=== PATIENT | male | born 1990 | race Caucasian/White ===

== ENCOUNTER 2017-01-02 20:18 | Emergency (ER) | payer OTHER ==
[2017-01-02 20:30] VITALS: RESP 16; TEMP 97.7
--- NOTE | 2017-01-02 20:31 | CPEKG ---
Heart Rate: 66 RR Interval: 909 P-R Interval: 144 QRSD Interval: 106 QT Interval: 396 QTC Interval: 415 P [place]: 11 QRS [place]: 23 T Wave [place]: 137 EKG Severity - ABNORMAL ECG - EKG Impression: SINUS RHYTHM EKG Impression: NONSPECIFIC T ABNORMALITIES, ANT-LAT LEADS Electronically Signed By: Hieu Frank 04-Jan-2017 08:39:41
--- NOTE | 2017-01-02 20:31 | UCPHY ---
H & P Patient Type: New Chief Complaint Nursing Narrative: C/o L sided chest pain x 3 days that worsens at night. Denies SOB. Time Seen by Provider: 01/02/17 20:24 HPI/ROS: 26-year-old male presents complaining of left-sided upper abdominal pain and chest pain for the last 3 days. He states it only happens in the afternoon however he is having some pain at present. He denies nausea vomiting diarrhea. He denies any relation between food and when the pain occurs Denies shortness of breath. He states he had a pulmonary embolism last March and is concerned about this pain also being a pulmonary embolism although he does admit is markedly less painful than last March. Review of systems General no fever no chills no weakness HEENT no eye pain no eye discharge. No eye redness, no sore throat Respiratory no cough, no shortness of breath Cardiac positive chest pain, no peripheral edema GI positive abdominal pain, no diarrhea, no constipation, no nausea, no vomiting no flank pain, no hematuria, no dysuria Musculoskeletal no myalgias, no joint pain Heme no easy bruising, no easy bleeding Endo no polyuria, no polydipsia Skin no rashes, no pruritus Neuro no syncope, no dizziness, no headaches Psych is no suicidal ideation, no homicidal ideation Source: Patient Exam Limitations: No limitations - Personal History Current Tetanus Diphtheria and Acellular Pertussis (TDAP): Yes Tetanus Vaccine Date: within 10 years - Medical/Surgical History Hx Asthma: No Hx Chronic Respiratory Disease: No Hx Diabetes: No Hx Cardiac Disease: No Hx Renal Disease: No Hx Cirrhosis: No Hx Alcoholism: No Hx HIV/AIDS: No Hx Splenectomy or Spleen Trauma: No Other PMH: pmh: PE. PSH: DENIES - Family History Significant Family History: No pertinent family hx - Social History Smoking Status: Former smoker Alcohol Use: Occasionally Drug Use: None - Physical Exam Exam: 26-year-old male in no acute distress nontoxic appearance afebrile HEENT atraumatic normocephalic, extraocular muscles intact, anicteric Oropharynx negative for erythema negative exudate, tolerating her own secretions Neck supple no meningismus Lungs clear to auscultation bilaterally Heart regular rate and rhythm without murmur rub or gallop Chest nontender to palpation Abdomen nondistended normoactive bowel sounds soft, mild left upper quadrant tenderness to palpation, no guarding no rebound Back no CVA tenderness, no step-offs, no spinal tenderness Extremities no cyanosis clubbing or edema Neuro alert and oriented, no focal deficits Constitutional: Initial Vital Signs Temperature (C) 36.5 C 01/02/17 20:29 Heart Rate 85 01/02/17 20:29 Respiratory Rate 16 01/02/17 20:29 Blood Pressure 124/66 H 01/02/17 20:29 O2 Sat (%) 96 01/02/17 20:29 O2 Delivery Mode Room Air Allergies/Adverse Reactions: No Known Allergies Allergy (Verified 01/02/17 20:30) Home Medications: Medication Instructions Recorded NK [No Known Home Meds] 01/02/17 Medical Decision Making ED Course/Re-evaluation: Patient seen and evaluated for left upper quadrant/left chest pain. EKG done normal sinus rhythm no ischemic changes no tachycardia IV established Lab sent CBC, CMP, lipase, D-dimer all negative Chest x-ray negative Chest CT-chronic right small thrombus/partial filling defect in the same location as prior pulmonary embolism 1 year ago, this 1 appears smaller and appears to be chronic Differential diagnosis Left upper quadrant abdominal pain-gastritis, peptic ulcer disease, pancreatitis , cholecystitis Left chest pain-cardiac ischemia, myocarditis, pulmonary embolism Laboratories do not support a diagnosis of pancreatitis cholecystitis cardiac ischemia or myocarditis Chest x-ray as noted above was negative Impression/plan 1. Left upper quadrant pain Likely gastritis cannot rule out early peptic ulcer disease Pain has only been approximately 3 days duration and only in the afternoons for now advised patient to try [id number] medicines such as Tums, Pepcid Also advised patient to follow up with a primary care physician 2. Chronic pulmonary thrombus right lung, very small Patient states he was only on an anticoagulant for approximately 4 months he is having no symptoms related to his right lung no shortness of breath no chest pain on the right side I suspect this finding of a partial thrombus chronic in nature that is very small is likely insignificant medically. The patient followed with a Dr. Ramirez a biological plant operator oncologist at [facility] in [place] for his pulmonary embolus I advised patient to see if he could arrange to have an appointment with Dr. Ramirez to discuss current chronic embolus and whether it would be worth going on anticoagulants began. - Data Points Laboratory Results: Laboratory Results 01/02/17 20:40 01/02/17 20:40 01/02/17 01/02/17 01/02/17 20:40 20:40 20:40 WBC 8.06 10^3/uL 10^3/uL (3.80-9.50) RBC 5.10 10^6/uL 10^6/uL (4.40-6.38) Hgb 15.6 g/dL g/dL (13.7-17.5) POC Hgb Hct 45.1 % % (40.0-51.0) POC Hct MCV 88.4 fL fL (81.5-99.8) MCH 30.6 pg pg (27.9-34.1) MCHC 34.6 g/dL g/dL (32.4-36.7) RDW 11.9 % % (11.5-15.2) Plt Count 289 10^3/uL 10^3/uL (150-400) MPV 10.1 fL fL (8.7-11.7) Neut % (Auto) 52.2 % % (39.3-74.2) Lymph % (Auto) 34.4 % % (15.0-45.0) [place] % (Auto) 7.2 % % (4.5-13.0) Eos % (Auto) 5.5 % % (0.6-7.6) Baso % (Auto) 0.6 % % (0.3-1.7) Nucleat RBC Rel Count 0.0 % % (0.0-0.2) Absolute Neuts (auto) 4.21 10^3/uL 10^3/uL (1.70-6.50) Absolute Lymphs (auto) 2.77 10^3/uL 10^3/uL (1.00-3.00) Absolute Monos (auto) 0.58 10^3/uL 10^3/uL (0.30-0.80) Absolute Eos (auto) 0.44 10^3/uL H 10^3/uL (0.03-0.40) Absolute Basos (auto) 0.05 10^3/uL 10^3/uL (0.02-0.10) Absolute Nucleated RBC 0.00 10^3/uL 10^3/uL (0-0.01) Immature Gran % 0.1 % % (0.0-1.1) Immature Gran # 0.01 10^3/uL 10^3/uL (0.00-0.10) PT 13.4 SEC SEC (12.0-15.0) INR 1.05 (0.83-1.16) APTT 29.9 SEC SEC (23.0-38.0) D-Dimer < 0.27 ug/mLFEU ug/mLFEU (0.00-0.50) POC Sodium Sodium 138 mEq/L mEq/L (134-144) POC Potassium Potassium 3.7 mEq/L mEq/L (3.5-5.2) POC Chloride Chloride 102 mEq/L mEq/L (97-110) Carbon Dioxide 24 mEq/l mEq/l (22-31) Anion Gap 12 mEq/L mEq/L (8-16) POC BUN BUN 17 mg/dL mg/dL (7-23) Creatinine 0.9 mg/dL mg/dL (0.7-1.3) POC Creatinine Estimated GFR > 60 Glucose 90 mg/dL mg/dL (70-100) POC Glucose Calcium 9.1 mg/dL mg/dL (8.5-10.4) Total Bilirubin 0.5 mg/dL mg/dL (0.1-1.4) AST 27 IU/L IU/L (17-59) ALT 37 IU/L IU/L (21-72) Alkaline Phosphatase 74 IU/L IU/L (38-126) Troponin I < 0.012 ng/mL ng/mL (0-0.034) Total Protein 7.3 g/dL g/dL (6.3-8.2) Albumin 4.0 g/dL g/dL (3.5-5.0) Lipase 01/02/17 01/02/17 20:35 20:34 WBC RBC Hgb POC Hgb 16.3 gm/dL gm/dL (14.5-17.3) Hct POC Hct 48 % % (42.8-50.6) MCV MCH MCHC RDW Plt Count MPV Neut % (Auto) Lymph % (Auto) [place] % (Auto) Eos % (Auto) Baso % (Auto) Nucleat RBC Rel Count Absolute Neuts (auto) Absolute Lymphs (auto) Absolute Monos (auto) Absolute Eos (auto) Absolute Basos (auto) Absolute Nucleated RBC Immature Gran % Immature Gran # PT INR APTT D-Dimer POC Sodium 142 mEq/L mEq/L (134-144) Sodium POC Potassium 3.5 mEq/L mEq/L (3.3-5.0) Potassium POC Chloride 105 mEq/L mEq/L (96-108) Chloride Carbon Dioxide Anion Gap POC BUN 19 mg/dL mg/dL (7-23) BUN Creatinine POC Creatinine 1.0 mg/dL mg/dL (0.8-1.5) Estimated GFR Glucose POC Glucose 95 mg/dL mg/dL (70-100) Calcium Total Bilirubin AST ALT Alkaline Phosphatase Troponin I Total Protein Albumin Lipase 72.0 IU/L IU/L (23-300) Point of Care Test Results: 01/02/17 20:34 POC Sodium 142 POC Potassium 3.5 POC Chloride 105 POC BUN 19 POC Creatinine 1.0 POC Glucose 95 Departure - Departure Disposition: Home, Routine, Self-Care Clinical Impression: Chronic pulmonary embolism, Left sided abdominal pain Condition: Good Instructions: Gastritis (ED) Additional Instructions: Follow up with Dr Ramirez, biological plant operator for recommendations of the small remaining partial thrombus on the right, appears chronic in nature. Referrals: NONE *PRIMARY CARE P,. [Primary Care Provider] - As per Instructions Tushar Mcclendon MD [Medical Doctor] - As per Instructions - PQRS PQRS Measurement: na
[2017-01-02 20:49] LABS: % IMMATURE GRANULYOCYTES 0.1 % (0.0-1.1); ABSOLUTE IMMATURE GRANULOCYTES 0.01 10^3/uL (0.00-0.10); ADD DIFF? NO; ADD MORPH? NO; ADD SCAN? NO; ATYPICAL LYMPHOCYTE FLAG 10 (0-99); FRAGMENT RBC FLAG 0 (0-99); HEMATOCRIT 45.1 % (40.0-51.0); HEMOGLOBIN 15.6 g/dL (13.7-17.5); LEFT SHIFT FLG 0 (0-99); LIPEMIA HEMOLYSIS FLAG 90 (0-99); MEAN CELL HEMOGLOBIN 30.6 pg (27.9-34.1); MEAN CELL HEMOGLOBIN CONCENTR. 34.6 g/dL (32.4-36.7); MEAN CELL VOLUME 88.4 fL (81.5-99.8); MEAN PLATELET VOLUME 10.1 fL (8.7-11.7); PLATELET CLUMPS FLAG 10 (0-99); PLATELET COUNT 289 10^3/uL (150-400); RED CELL DISTRIBUTION WIDTH 11.9 % (11.5-15.2)
[2017-01-02 21:01] LABS: INR 1.05 (0.83-1.16); PROTIME(PATIENT) 13.4 SEC (12.0-15.0)
[2017-01-02 21:02] LABS: APTT 29.9 SEC (23.0-38.0)
[2017-01-02 21:03] LABS: ALANINE AMINOTRANSFERASE 37 IU/L (21-72); ALKALINE PHOSPHATASE 74 IU/L (38-126); ANION GAP 12 mEq/L (8-16); ASPARTATE AMINOTRANSFERASE 27 IU/L (17-59); BILIRUBIN,TOTAL 0.5 mg/dL (0.1-1.4); CALCIUM 9.1 mg/dL (8.5-10.4); CARBON DIOXIDE 24 mEq/l (22-31); CHLORIDE 102 mEq/L (97-110); CREATININE 0.9 mg/dL (0.7-1.3); GLOMERULAR FILTRATION RATE > 60; GLUCOSE 90 mg/dL (70-100); POTASSIUM 3.7 mEq/L (3.5-5.2); SODIUM 138 mEq/L (134-144); TOTAL PROTEIN 7.3 g/dL (6.3-8.2)
[2017-01-02 21:15] LABS: TROPONIN I < 0.012 ng/mL (0-0.034)
[2017-01-02] MEDS ORDERED: IOPAMIDOL (ISOVUE 370) 100 ML BTL IV ONE (21:16)
[2017-01-02 22:53] VITALS: BP 126/72; PULSE 68; O2SAT 97
== END 2017-01-02 22:35 | disposition home or self-care (01) ==
LOC: CED 20:18
DX: K29.70 Gastritis, unspecified, without bleeding (principal); I27.82 Chronic pulmonary embolism
CPT/HCPCS: 71020-PO; 71275-PO; 80053-PO; 82947-QW; 83690-PO; 84484-PO; 85025-PO; 85378-PO; 85610-PO; 85730-PO; G0463-PO; Q9967

== ENCOUNTER 2017-04-25 18:30 | Inpatient (IN) | payer OTHER ==
--- NOTE | 2017-04-25 18:47 | CPEKG ---
Heart Rate: 83 RR Interval: 723 P-R Interval: 140 QRSD Interval: 104 QT Interval: 348 QTC Interval: 409 P [place]: 41 QRS [place]: 46 T Wave [place]: -9 EKG Severity - ABNORMAL ECG - EKG Impression: SINUS RHYTHM EKG Impression: NONSPECIFIC T ABNORMALITIES, DIFFUSE LEADS Electronically Signed By: Paramjit Buckley 25-Apr-2017 19:00:43
[2017-04-25] MEDS ORDERED: ASPIRIN 81 MG CHEWABLE TAB ONE (18:56)
--- NOTE | 2017-04-25 18:56 | EDPHY ---
H & P Time Seen by Provider: 04/25/17 18:56 HPI/ROS: Chief complaint. Chest pain HPI. 26-year-old male presents emergency department with chest pain for 7 hours that was present upon awakening about noon today. Cocaine use last night. He describes the discomfort as pressure and squeezing left anterior chest. No radiation. Symptoms are somewhat worse with taking a deep breath. No fever cough. No unusual leg pain or swelling. Previous PE. Continues to have chest discomfort. ROS Constitutional. no fever/chills, no weakness Eyes. no problems with vision ENT. no sore throat, no nasal drainage Cardiovascular. Chest pressure Respiratory. no shortness of breath, no cough Abdominal. no abdominal pain, no nausea/vomiting, no diarrhea . no problems urinating MS. no calf pain/swelling, no neck/back pain, no joint pain Skin. no rash Lymph. no swollen glands Neuro. no headache, no dizziness, no difficulty walking or with speech Past Medical/Surgical History: Previous pulmonary embolus after having an injury to his leg. No longer on anticoagulation Social History: Single, daily smoker, no alcohol. Cocaine use last night Smoking Status: Current every day smoker Physical Exam: General Appearance: Alert well-developed male mild distress vital signs show a heart rate 111 and blood pressure 139/83 Eyes: Pupils equal and round no pallor or injection. ENT, Mouth: Mucous membranes are moist. Respiratory: There are no retractions, lungs are clear to auscultation. Cardiovascular: Regular rate and rhythm. Gastrointestinal: Abdomen is soft and nontender, no masses, bowel sounds normal. Neurological: Awake and alert, sensory and motor exams grossly normal. Skin: Warm and dry, no rashes. Musculoskeletal: Neck is supple nontender. Extremities symmetrical, full range of motion. Psychiatric: Patient is oriented X 3, there is no agitation. Constitutional: Initial Vital Signs Temperature (C) 36.5 C 04/25/17 18:49 Heart Rate 111 H 04/25/17 18:49 Respiratory Rate 16 04/25/17 18:49 Blood Pressure 139/83 H 04/25/17 18:49 O2 Sat (%) 95 04/25/17 18:49 O2 Delivery Mode Room Air Allergies/Adverse Reactions: No Known Allergies Allergy (Verified 01/02/17 20:30) Home Medications: Medication Instructions Recorded NK [No Known Home Meds] 01/02/17 Medical Decision Making - Diagnostics EKG Interpretation: EKG interpreted by me shows normal sinus rhythm with normal interval and axis. QRS is normal there are anterior septal T-wave inversions leads V3 through V6. Rate is 83. Some similar T-wave changes present on EKG in December 2016 Imaging Results: Imaging Impressions Chest X-Ray 04/25/17 19:06 Impression: 1. No visible etiology for pain 2. Chronic or recurrent mild bronchitis. Procedures: IV normal saline, monitor. Aspirin in the emergency department. IV Ativan and sublingual nitroglycerin ED Course/Re-evaluation: Patient receive nitroglycerin x3 sublingually as well as aspirin and IV lorazepam. His pain has gone from a 7/10 to now about 2/10 but does continue. He otherwise remains stable. The patient and I discussed imaging and lab results as well as EKG findings. We discussed treatment plan including recommendation for admission and transport by ambulance to [facility]. The patient expresses understanding and agreement I consulted and discussed case with Dr. Verduzco, hospitalist, who agrees to the admission. Differential Diagnosis: I have considered acute coronary syndrome and vaso spasm. I have considered the pro clotting affect of the cocaine. While he has had and pulmonary embolus in the remote past this was due to leg trauma. His D-dimer is negative tonight. His chest x-ray is normal. I do not think this represents pulmonary embolus. I have also considered aortic dissection. - Data Points Laboratory Results: Laboratory Results 04/25/17 18:45 04/25/17 18:45 04/25/17 04/25/17 04/25/17 18:45 18:45 18:45 WBC 9.94 10^3/uL H 10^3/uL (3.80-9.50) RBC 5.17 10^6/uL 10^6/uL (4.40-6.38) Hgb 16.1 g/dL g/dL (13.7-17.5) Hct 46.5 % % (40.0-51.0) MCV 89.9 fL fL (81.5-99.8) MCH 31.1 pg pg (27.9-34.1) MCHC 34.6 g/dL g/dL (32.4-36.7) RDW 13.2 % % (11.5-15.2) Plt Count 255 10^3/uL 10^3/uL (150-400) MPV 9.4 fL fL (8.7-11.7) Neut % (Auto) 77.2 % H % (39.3-74.2) Lymph % (Auto) 15.8 % % (15.0-45.0) [place] % (Auto) 5.2 % % (4.5-13.0) Eos % (Auto) 0.8 % % (0.6-7.6) Baso % (Auto) 0.7 % % (0.3-1.7) Nucleat RBC Rel Count 0.0 % % (0.0-0.2) Absolute Neuts (auto) 7.67 10^3/uL H 10^3/uL (1.70-6.50) Absolute Lymphs (auto) 1.57 10^3/uL 10^3/uL (1.00-3.00) Absolute Monos (auto) 0.52 10^3/uL 10^3/uL (0.30-0.80) Absolute Eos (auto) 0.08 10^3/uL 10^3/uL (0.03-0.40) Absolute Basos (auto) 0.07 10^3/uL 10^3/uL (0.02-0.10) Absolute Nucleated RBC 0.00 10^3/uL 10^3/uL (0-0.01) Immature Gran % 0.3 % % (0.0-1.1) Immature Gran # 0.03 10^3/uL 10^3/uL (0.00-0.10) D-Dimer < 0.27 ug/mLFEU ug/mLFEU (0.00-0.50) Sodium 143 mEq/L mEq/L (134-144) Potassium 3.6 mEq/L mEq/L (3.5-5.2) Chloride 103 mEq/L mEq/L (97-110) Carbon Dioxide 22 mEq/l mEq/l (22-31) Anion Gap 18 mEq/L H mEq/L (8-16) BUN 8 mg/dL mg/dL (7-23) Creatinine 0.7 mg/dL mg/dL (0.7-1.3) Estimated GFR > 60 Glucose 115 mg/dL H mg/dL (70-100) Calcium 9.0 mg/dL mg/dL (8.5-10.4) Troponin I < 0.012 ng/mL ng/mL (0-0.034) Medications Given: Discontinued Medications Aspirin (Aspirin) 324 mg PO EDNOW ONE Stop: 04/25/17 18:59 Last Admin: 04/25/17 19:05 Dose: 324 mg Sodium Chloride (Ns) 1,000 mls @ 0 mls/hr IV ONCE ONE; Wide Open PRN Reason: Protocol Stop: 04/25/17 18:59 Last Admin: 04/25/17 19:00 Dose: 1,000 mls Lorazepam (Ativan Injection) 0.5 mg IVP EDNOW ONE Stop: 04/25/17 18:59 Last Admin: 04/25/17 19:05 Dose: 0.5 mg Nitroglycerin (Nitrostat) 0.4 mg SL EDNOW ONE Stop: 04/25/17 19:18 Last Admin: 04/25/17 19:16 Dose: 0.4 mg Nitroglycerin (Nitrostat) 0.4 mg SL EDNOW ONE Stop: 04/25/17 19:11 Last Admin: 04/25/17 19:11 Dose: 0.4 mg Nitroglycerin (Nitrostat) 0.4 mg SL EDNOW PRN PRN Reason: Chest Pain Stop: 04/27/17 19:22 Last Admin: 04/25/17 19:21 Dose: 0.4 mg Departure - Departure Disposition: [facility] Inpatient Acute Clinical Impression: Chest pain Qualifiers: Chest pain type: unspecified Qualified Code(s): R07.9 - Chest pain, unspecified Condition: Fair
[2017-04-25] MEDS ORDERED: NS 1,000 ML IV ONE (18:58)
[2017-04-25] MEDS ORDERED: ASPIRIN 81 MG CHEWABLE TAB PO ONE (18:58)
[2017-04-25] MEDS ORDERED: LORazepam 2 MG/ML INJ IVP ONE ×2 (18:58→20:50)
[2017-04-25 19:03] LABS: % IMMATURE GRANULYOCYTES 0.3 % (0.0-1.1); ABSOLUTE IMMATURE GRANULOCYTES 0.03 10^3/uL (0.00-0.10); ADD DIFF? NO; ADD MORPH? NO; ADD SCAN? NO; ATYPICAL LYMPHOCYTE FLAG 10 (0-99); FRAGMENT RBC FLAG 0 (0-99); HEMATOCRIT 46.5 % (40.0-51.0); HEMOGLOBIN 16.1 g/dL (13.7-17.5); LEFT SHIFT FLG 0 (0-99); LIPEMIA HEMOLYSIS FLAG 90 (0-99); MEAN CELL HEMOGLOBIN 31.1 pg (27.9-34.1); MEAN CELL HEMOGLOBIN CONCENTR. 34.6 g/dL (32.4-36.7); MEAN CELL VOLUME 89.9 fL (81.5-99.8); MEAN PLATELET VOLUME 9.4 fL (8.7-11.7); PLATELET CLUMPS FLAG 0 (0-99); PLATELET COUNT 255 10^3/uL (150-400); RED BLOOD CELL COUNT 5.17 10^6/uL (4.40-6.38); RED CELL DISTRIBUTION WIDTH 13.2 % (11.5-15.2)
[2017-04-25] MEDS ORDERED: NITROGLYCERIN 0.4 MG BTL SL PRN ×2 (19:06→19:21)
[2017-04-25 19:10] LABS: ANION GAP 18 mEq/L (8-16); CARBON DIOXIDE 22 mEq/l (22-31); CHLORIDE 103 mEq/L (97-110); CREATININE 0.7 mg/dL (0.7-1.3); GLOMERULAR FILTRATION RATE > 60; GLUCOSE 115 mg/dL (70-100); POTASSIUM 3.6 mEq/L (3.5-5.2); SODIUM 143 mEq/L (134-144)
[2017-04-25] MEDS ORDERED: NITROGLYCERIN 0.4 MG BTL SL ONE ×2 (19:10→19:17)
[2017-04-25 19:23] LABS: TROPONIN I < 0.012 ng/mL (0-0.034)
[2017-04-25] MEDS: NITROGLYCERIN 0.4 MG/HR PATCH TD SCH ×2 (20:50→21:54)
[2017-04-25] MEDS ORDERED: NITROGLYCERIN 2% 1 GM PACKET ONE (20:50)
[2017-04-25] MEDS ORDERED: NITROGLYCERIN 2% 1 GM PACKET TP ONE (20:50)
[2017-04-25] MEDS ORDERED: PATCH REMOVAL 1 EA PATCH TD SCH (21:00)
[2017-04-25] MEDS ORDERED: ONDANSETRON DISINTEGRATING 4 MG TAB PO PRN (23:30)
[2017-04-25] MEDS ORDERED: ONDANSETRON 4 MG/2 ML VIAL IVP PRN (23:30)
--- NOTE | 2017-04-25 23:42 | PDGENHP ---
History and Physical - Chief Complaint chest pain - History of Present Illness Patient is a 26 year old male with history of previous provoked PE who presents to the [facility] ED with complaint of chest pain. Patient states pain has been present since awakening at around noon today. He had been out the previous night and admits to cocaine use. He describes the pain as a tightness, substernal, nonradiating, not associated with shortness of breath, palpitations , dizziness. The pain had been constant, with intermittent worsening in intensity, sometimes up to 10/10, so he decided to go to the [facility] for further evaluation. He denies any recent fevers, chills, cough, congestion, nausea, vomiting. On arrival to the [facility], patient was afebrile and hemodynamically stable. Labs revealed normal cbc, bmp and negative initial troponin. EKG showed sinus rhythm with septal TWI. CXR was unremarkable. Chest pain was improved with nitro paste. He was then transferred to [facility] for further observation and admission. History Information - Allergies/Home Medication List Allergies/Adverse Reactions: No Known Allergies Allergy (Verified 01/02/17 20:30) Home Medications: NK [No Known Home Meds] 01/02/17 [Last Taken Unknown] I have personally reviewed and updated: family history, medical history, social history, surgical history - Past Medical History Additional medical history: provoked pulmonary embolism (2016) - Surgical History Reports: no pertinent surgical hx - Family History Positive for: non-pertinent - Social History Smoking Status: Current every day smoker (2-3 daily) Alcohol Use: Occasionally (1-2 times per week) Drug Use: Cocaine (reports first time use yesterday), Marijuana Review of Systems ROS: 10pt was reviewed & negative except for what was stated in HPI & below Physical Exam Temp Pulse Resp BP Pulse Ox 37.1 C 74 20 120/66 96 04/25/17 22:18 04/25/17 22:18 04/25/17 22:18 04/25/17 22:18 04/25/17 22:18 O2 (L/minute) 2 Constitutional: no apparent distress, appears nourished, not in pain Eyes: PERRL, anicteric sclera, EOMI Ears, Nose, Mouth, Throat: moist mucous membranes, hearing normal, ears appear normal, no oral mucosal ulcers Cardiovascular: regular rate and rhythym, no murmur, rub, or gallop, pulses symmetric bilaterally, No JVD, No edema Peripheral Pulses: 2+: dorsalis-pedis (R), dorsalis-pedis (L) Respiratory: no respiratory distress, no rales or rhonchi, clear to auscultation Gastrointestinal: normoactive bowel sounds, soft, non-tender abdomen, no palpable masses, No guarding, No rebound, No distension Genitourinary: no bladder fullness, no bladder tenderness Skin: warm, normal color, no rashes or abrasions, no fluctuance, no induration, No mottled Musculoskeletal: full muscle strength, no muscle tenderness, normal joint ROM, no joint effusions Neurologic: AAOx3, sensation intact bilaterally, CN II-XII Intact, No weakness, No numbness, No facial droop Psychiatric: interacting appropriately, not anxious, not encephalopathic, thought process linear Lab Data & Imaging Review 04/25/17 18:45 04/25/17 18:45 WBC 9.94 10^3/uL (3.80-9.50) H 04/25/17 18:45 RBC 5.17 10^6/uL (4.40-6.38) 04/25/17 18:45 Hgb 16.1 g/dL (13.7-17.5) 04/25/17 18:45 Hct 46.5 % (40.0-51.0) 18 18:45 MCV 89.9 fL (81.5-99.8) 04/25/17 18:45 MCH 31.1 pg (27.9-34.1) 04/25/17 18:45 MCHC 34.6 g/dL (32.4-36.7) 04/25/17 18:45 RDW 13.2 % (11.5-15.2) 04/25/17 18:45 Plt Count 255 10^3/uL (150-400) 04/25/17 18:45 MPV 9.4 fL (8.7-11.7) 04/25/17 18:45 Neut % (Auto) 77.2 % (39.3-74.2) H 04/25/17 18:45 Lymph % (Auto) 15.8 % (15.0-45.0) 04/25/17 18:45 [place] % (Auto) 5.2 % (4.5-13.0) 04/25/17 18:45 Eos % (Auto) 0.8 % (0.6-7.6) 04/25/17 18:45 Baso % (Auto) 0.7 % (0.3-1.7) 04/25/17 18:45 Nucleat RBC Rel Count 0.0 % (0.0-0.2) 04/25/17 18:45 Absolute Neuts (auto) 7.67 10^3/uL (1.70-6.50) H 04/25/17 18:45 Absolute Lymphs (auto) 1.57 10^3/uL (1.00-3.00) 04/25/17 18:45 Absolute Monos (auto) 0.52 10^3/uL (0.30-0.80) 04/25/17 18:45 Absolute Eos (auto) 0.08 10^3/uL (0.03-0.40) 04/25/17 18:45 Absolute Basos (auto) 0.07 10^3/uL (0.02-0.10) 04/25/17 18:45 Absolute Nucleated RBC 0.00 10^3/uL (0-0.01) 04/25/17 18:45 Immature Gran % 0.3 % (0.0-1.1) 04/25/17 18:45 Immature Gran # 0.03 10^3/uL (0.00-0.10) 04/25/17 18:45 D-Dimer < 0.27 ug/mLFEU (0.00-0.50) 04/25/17 18:45 Sodium 143 mEq/L (134-144) 04/25/17 18:45 Potassium 3.6 mEq/L (3.5-5.2) 04/25/17 18:45 Chloride 103 mEq/L (97-110) 04/25/17 18:45 Carbon Dioxide 22 mEq/l (22-31) 04/25/17 18:45 Anion Gap 18 mEq/L (8-16) H 04/25/17 18:45 BUN 8 mg/dL (7-23) 04/25/17 18:45 Creatinine 0.7 mg/dL (0.7-1.3) 04/25/17 18:45 Estimated GFR > 60 04/25/17 18:45 Glucose 115 mg/dL (70-100) H 04/25/17 18:45 Calcium 9.0 mg/dL (8.5-10.4) 04/25/17 18:45 Troponin I < 0.012 ng/mL (0-0.034) 18 18:45 Visualized and Interpreted Chest x-ray results: Yes Chest X-Ray results: no infiltrate, normal Visualized and Interpreted EKG results: Yes EKG Interpretation: Positive for: normal sinsus rhythm, T waves inversion (V3-V5 ) Assessment & Plan Assessment: Patient is a 26 year old male with history of previous PE who presents to the ED with complaint of substernal chest pain after a night of partying and cocaine use. [facility] evaluation reveals negative initial troponin, negative d-dimer , but EKG with with new TWI. Plan: # chest pain Given the recent cocaine use, patient is at risk for vasospasm-induced IL vs Prinzmetal's angina. Initial troponin negative, but EKG does show new TWI in V3- V5. Differential also includes pericarditis vs pleurisy vs PE. D-dimer is negative, so low suspicion for acute PE. - monitor on telemetry - trend cardiac enzymes, monitor serial EKGs - check TTE in AM # h/o PE Presentation today does not appear consistent with PE, especially given negative d-dimer. CT angio from 12/2016 does show evidence of chronic subsegmental PE in R lower lobe (similar to 03/2016 CT), however, size and location of this are likely not clinically relevant. Patient did complete about 4 months of systemic anticoagulation for his PE and is not currently on any medications. Will check TTE to assess for pulmonary hypertension and consider re-initiating AC if clinically significant. # cocaine use Advised the patient on the risks of cocaine use, including IL, arrhythmia, . He expressed understanding. Will check urine drug screen to rule out additional ingestion. # dispo: admit to observation status # gen: regular diet DVT ppx: low risk obs Full code
[2017-04-25] MEDS: KETOROLAC 15 MG/1 ML SDV IVP SCH (23:55)
[2017-04-25] MEDS: NS 1,000 ML IV SCH (23:55)
[2017-04-25] MEDS: HYDROCODONE/APAP 5/325 TAB PO PRN (23:56)
[2017-04-26 04:55] LABS: % IMMATURE GRANULYOCYTES 0.3 % (0.0-1.1); ABSOLUTE IMMATURE GRANULOCYTES 0.02 10^3/uL (0.00-0.10); ADD DIFF? NO; ADD MORPH? NO; ADD SCAN? NO; ATYPICAL LYMPHOCYTE FLAG 20 (0-99); FRAGMENT RBC FLAG 0 (0-99); HEMATOCRIT 42.4 % (40.0-51.0); HEMOGLOBIN 14.2 g/dL (13.7-17.5); LEFT SHIFT FLG 0 (0-99); LIPEMIA HEMOLYSIS FLAG 80 (0-99); MEAN CELL HEMOGLOBIN 31.3 pg (27.9-34.1); MEAN CELL HEMOGLOBIN CONCENTR. 33.5 g/dL (32.4-36.7); MEAN CELL VOLUME 93.4 fL (81.5-99.8); MEAN PLATELET VOLUME 9.4 fL (8.7-11.7); PLATELET CLUMPS FLAG 0 (0-99); PLATELET COUNT 197 10^3/uL (150-400); RED BLOOD CELL COUNT 4.54 10^6/uL (4.40-6.38); RED CELL DISTRIBUTION WIDTH 13.3 % (11.5-15.2)
[2017-04-26 05:27] LABS: ANION GAP 6 mEq/L (8-16); CALCIUM 9.1 mg/dL (8.5-10.4); CARBON DIOXIDE 26 mEq/l (22-31); CHLORIDE 108 mEq/L (97-110); GLOMERULAR FILTRATION RATE > 60; GLUCOSE 89 mg/dL (70-100); MAGNESIUM 2.1 mg/dL (1.6-2.3); POTASSIUM 4.2 mEq/L (3.5-5.2); SODIUM 140 mEq/L (134-144)
[2017-04-26 05:37] LABS: CREATINE KINASE-MB FRACTION 2.57 ng/mL (0-3.19); TROPONIN I < 0.012 ng/mL (0-0.034)
[2017-04-26] MEDS: HYDROCODONE/APAP 5/325 TAB PO PRN (05:49)
[2017-04-26] MEDS: KETOROLAC 15 MG/1 ML SDV IVP SCH ×2 (05:49→10:37)
--- NOTE | 2017-04-26 06:49 | CPEKG ---
Heart Rate: 52 RR Interval: 1154 P-R Interval: 124 QRSD Interval: 124 QT Interval: 468 QTC Interval: 436 P [place]: 5 QRS [place]: 51 T Wave [place]: 49 EKG Severity - ABNORMAL ECG - EKG Impression: SINUS RHYTHM Electronically Signed By: Sylvester Cool 26-Apr-2017 09:34:44
[2017-04-26 06:56] LABS: PHENCYCLIDINE URINE BCH < 6 ng/ml (NEGATIVE); PHENCYCLIDINE URINE BCH NEGATIVE (NEGATIVE)
[2017-04-26 07:12] LABS: TETRAHYDROCANNABINOL URINE > 800 ng/mL (NEGATIVE)
[2017-04-26 07:19] LABS: TETRAHYDROCANNABINOL URINE > 800 ng/mL (NEGATIVE)
--- NOTE | 2017-04-26 09:30 | CPEKG ---
Heart Rate: 47 RR Interval: 1277 P-R Interval: 128 QRSD Interval: 104 QT Interval: 476 QTC Interval: 421 P [place]: -4 QRS [place]: 43 T Wave [place]: 34 EKG Severity - OTHERWISE NORMAL ECG - EKG Impression: SINUS BRADYCARDIA Electronically Signed By: Emmanuel Palacios 26-Apr-2017 17:40:08
[2017-04-26] MEDS ORDERED: MAG HYDROX/AL HYDROX/SIMETH 30 ML UDCUP PO PRN (10:15)
[2017-04-26] MEDS ORDERED: PANTOPRAZOLE SODIUM 40 MG TAB PO ONE (10:16)
[2017-04-26] MEDS: NS 1,000 ML IV SCH (10:42)
--- NOTE | 2017-04-26 10:48 | ECHO ---
[id number] + + [address] : : [place] [address] : : [phone] + + Adult Echocardiographic Report + ------+ :Name: TAY ASTUDILLO HStudy Date: 04/26/2017 08:33 AM : : Hospital Admission Number: [id number] Locatio n: 359: :: 1990 Gender: Male Height: 67 in : :Age: 26 yrs Race: WH Weight: 170 lb : :Reason For Study: Chest pain after cocaine use : : BSA: 1.9 meters 2 : + ------+ MMode/2D Measurements \T\ Calculations IVSd: 0.88 cm LVIDd: 5.2 cm FS: 39.0 % Ao root diam: LVPWd: 0.67 cm LVIDs: 3.1 cm EDV(Teich): 3.5 cm 127.4 ml LA dimension: ESV(Teich): 4.0 cm 39.4 ml EF(Teich): 69.1 % LVLd ap4: 9.2 cm SV(MOD-sp4): EDV(MOD-sp4): 71.0 ml 111.0 ml LVLs ap4: 7.9 cm ESV(MOD-sp4): 40.0 ml EF(MOD-sp4): 64.0 % Normal Measurement Values: + + :LVIDd (3.5-5.7cm) IVSd (0.6-1.1cm) LVPWd (0.6-1.1cm) Aortic Root (2.0-3.7cm)Left Atrium (1.5-4.0cm): :LV Vol(d) (76-115ml) LV Vol(s) (29-48ml) Ejec Fraction (50-65%)PV Reza (0.6- 1.2m/s) TV Reza (0.4-1.0m/s) : :MV E Reza (0.8-1.0m/s)MV A Reza (0.3-1.0m/s)LVOT Reza (0.7-1.2m/s) Asc Ao Reza ( 0.9-1.8m/s) : + + Doppler Measurements \T\ Calculations MV E max reza: 77.5 cm/sec Ao V2 max: 104.5 cm/sec MV A max reza: 26.2 cm/sec Ao max P.4 mmHg MV E/A: 3.0 Left Ventricle The left ventricle is normal in size. There is normal left ventricular wall thickness. Left ventricular systolic function is normal. Ejection Fraction = 60-65%. No regional wall motion abnormalities noted. Right Ventricle The right ventricle is normal in size and function. Atria The left atrial size is normal. Right atrial size is normal. The interatrial septum is intact with no evidence for an atrial septal defect. Mitral Valve The mitral valve is normal in structure and function. There is no evidence of mitral valve prolapse. There is no mitral valve stenosis. There is trace mitral regurgitation. Tricuspid Valve Normal tricuspid valve. There is trace to mild tricuspid regurgitation. Aortic Valve The aortic valve is trileaflet. The aortic valve opens well. There is no aortic stenosis. There is no aortic insufficiency. Pulmonic Valve The pulmonic valve is normal in structure and function. Trace pulmonic valvular regurgitation. Great Vessels The aortic root is normal size. Pericardium/Pleural There is no pericardial effusion. Conclusion A complete two-dimensional transthoracic echocardiogram was performed (2D, M-mode, Doppler and color flow Doppler). Left ventricular systolic function is normal. Ejection Fraction = 60-65%. No regional wall motion abnormalities noted. There is trace mitral regurgitation. There is trace to mild tricuspid regurgitation. Final Reading Physician: Tacos Medina signed on 04/26/2017 10:47 AM Performed By: Darlin Santos RDCS
--- NOTE | 2017-04-26 12:48 | HOSPPROG ---
Hospitalist Progress Note Assessment/Plan: Patient is a 26 year old male with history of previous PE who presents to the ED with complaint of substernal chest pain after a night of partying and cocaine use. EKG with with new TWI. 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 he says this was a wake up call #Cannibis use and opiate use #nicotine dependence says he cut back/ recommended abstinence from this will avoid nicotine patch since it causes vasoconstriction #Plan: w persistent cp, he will need another midnight stay for monitoring. This will change him to IP. Continue IV fluids, ntg paste prn, ativan prn Subjective: Maximo is c/o persistent chest pain. Objective: Vital Signs Temp Pulse Resp BP Pulse Ox 36.7 C 57 L 15 123/77 H 96 04/26/17 11:45 04/26/17 11:45 04/26/17 11:45 04/26/17 11:45 04/26/17 11:45 Laboratory Results 04/26/17 04:41 04/26/17 04:41 04/25/17 04/26/17 04/27/17 05:59 05:59 05:59 Intake Total 1925 Output Total 300 Balance 1625 - Physical Exam Constitutional: No no apparent distress (mild) Eyes: PERRL Ears, Nose, Mouth, Throat: hearing normal Cardiovascular: regular rate and rhythym, bradycardia Respiratory: no respiratory distress Gastrointestinal: normoactive bowel sounds Skin: warm Musculoskeletal: full muscle strength Neurologic: AAOx3 Psychiatric: interacting appropriately, not anxious ICD10 Worksheet Patient Problems: Problems Problem Status Onset Chest pain Acute Pulmonary embolism Acute
[2017-04-26] MEDS ORDERED: LORazepam 2 MG/ML INJ IVP PRN (13:49)
[2017-04-26 15:19] LABS: CK-MB INTERPRETATION NEGATIVE (NEGATIVE); CREATINE KINASE-MB FRACTION 2.54 ng/mL (0-3.19)
[2017-04-26] MEDS: ACETAMINOPHEN 325 MG TAB PO PRN ×2 (16:43→20:59)
[2017-04-26] MEDS: NITROGLYCERIN 0.4 MG BTL SL PRN (16:44)
[2017-04-27] MEDS: NITROGLYCERIN 0.4 MG BTL SL PRN ×2 (04:55→05:03)
[2017-04-27] MEDS: ACETAMINOPHEN 325 MG TAB PO PRN (05:11)
--- NOTE | 2017-04-27 09:22 | HOSPPROG ---
Hospitalist Progress Note Assessment/Plan: Patient is a 26 year old male with history of previous PE who presents to the ED with complaint of substernal chest pain after a night of partying and cocaine use. EKG with with new TWI. 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 he says this was a wake up call #Cannibis use and opiate use #nicotine dependence says he cut back/ recommended abstinence from this will avoid nicotine patch since it causes vasoconstriction #Plan: Cardiology to see Subjective: Maximo is feeling poorly/ still having cp that is relieved w ntg. Objective: Vital Signs Temp Pulse Resp BP Pulse Ox 37.0 C 74 18 118/71 99 04/27/17 08:24 04/27/17 08:24 04/27/17 08:24 04/27/17 08:24 04/27/17 08:24 04/26/17 04/27/17 04/28/17 05:59 05:59 05:59 Intake Total 950 Balance 950 - Physical Exam Constitutional: uncomfortable, No not in pain Eyes: PERRL Ears, Nose, Mouth, Throat: hearing normal Cardiovascular: regular rate and rhythym, bradycardia Respiratory: no respiratory distress Gastrointestinal: normoactive bowel sounds Skin: warm Musculoskeletal: full muscle strength Neurologic: AAOx3 Psychiatric: anxious ICD10 Worksheet Patient Problems: Problems Problem Status Onset Chest pain Acute Pulmonary embolism Acute
--- NOTE | 2017-04-27 10:29 | CPEKG ---
Heart Rate: 60 RR Interval: 1000 P-R Interval: 128 QRSD Interval: 106 QT Interval: 432 QTC Interval: 432 P [place]: 14 QRS [place]: 36 T Wave [place]: 15 EKG Severity - NORMAL ECG - EKG Impression: SINUS RHYTHM Electronically Signed By: Emmanuel Palacios 27-Apr-2017 15:53:09
[2017-04-27 11:51] VITALS: BP 129/84; PULSE 60; RESP 16; TEMP 98.5; O2SAT 96
--- NOTE | 2017-04-27 14:19 | PDCARCONS ---
Cardiology Consult Reason for Consult: Chest pain Chief Complaint: Chest pain Requesting Physician: Malika Almodovar History of Present Illness: 26-year-old male new history of pulmonary embolic event last year in the setting of a contusion to the knee admitted to the hospital on the with an episode of substernal chest pressure. Patient had used cocaine. Initial EKG showed lateral ST depression. Symptoms resolved spontaneously. Last evening he had a 2nd episode of substernal chest pressure. This was relieved with nitroglycerin. This morning he is feeling back to his usual state of good health. He has no PND orthopnea. He has had no palpitations syncope or near syncope. Patient had a workup for hypercoagulable state. He has 2 uncles with factor 5 Leiden deficiency. He was found not to have predisposing coagulopathy. Denies hypertension, hyperlipidemia, diabetes. He is a nonsmoker. No family history of early heart disease. History Information - Allergies/Home Medication List Allergies/Adverse Reactions: No Known Allergies Allergy (Verified 01/02/17 20:30) I have personally reviewed and updated: family history, medical history, social history, surgical history - Past Medical History pulmonary embolism - Surgical History Reports: no pertinent surgical hx - Family History Positive for: non-pertinent - Social History Smoking Status: Current every day smoker (2-3 daily) Alcohol Use: Occasionally (1-2 times per week) Drug Use: Cocaine (reports first time use yesterday), Marijuana Physical Exam Temp Pulse Resp BP Pulse Ox 36.9 C 60 16 129/84 H 96 04/27/17 11:50 04/27/17 11:50 04/27/17 11:50 04/27/17 11:50 04/27/17 11:50 O2 (L/minute) 2 Constitutional: no apparent distress, appears nourished Eyes: PERRL Ears, Nose, Mouth, Throat: moist mucous membranes, hearing normal Cardiovascular: regular rate and rhythym, no murmur, rub, or gallop, No systolic murmur Peripheral Pulses: 1+: carotid (R), carotid (L), femoral (R), femoral (L), dorsalis-pedis (R), dorsalis-pedis (L) Respiratory: no respiratory distress, no rales or rhonchi, clear to auscultation Gastrointestinal: normoactive bowel sounds, soft, non-tender abdomen Genitourinary: no bladder fullness, no bladder tenderness Skin: warm, normal color Musculoskeletal: full muscle strength, no muscle tenderness, normal joint ROM Neurologic: sensation intact bilaterally, No weakness Psychiatric: interacting appropriately Lymph, Heme, Immunologic: no cervical LAD, no supraclavicular LAD Lab and Imaging 04/26/17 04:41 04/26/17 04:41 WBC 6.38 10^3/uL (3.80-9.50) 04/26/17 04:41 RBC 4.54 10^6/uL (4.40-6.38) 04/26/17 04:41 Hgb 14.2 g/dL (13.7-17.5) 04/26/17 04:41 Hct 42.4 % (40.0-51.0) 04/26/17 04:41 MCV 93.4 fL (81.5-99.8) 04/26/17 04:41 MCH 31.3 pg (27.9-34.1) 04/26/17 04:41 MCHC 33.5 g/dL (32.4-36.7) 04/26/17 04:41 RDW 13.3 % (11.5-15.2) 04/26/17 04:41 Plt Count 197 10^3/uL (150-400) D 04/26/17 04:41 MPV 9.4 fL (8.7-11.7) 04/26/17 04:41 Neut % (Auto) 47.0 % (39.3-74.2) 04/26/17 04:41 Lymph % (Auto) 34.8 % (15.0-45.0) 04/26/17 04:41 [place] % (Auto) 11.0 % (4.5-13.0) 04/26/17 04:41 Eos % (Auto) 5.6 % (0.6-7.6) 04/26/17 04:41 Baso % (Auto) 1.3 % (0.3-1.7) 04/26/17 04:41 Nucleat RBC Rel Count 0.0 % (0.0-0.2) 04/26/17 04:41 Absolute Neuts (auto) 3.00 10^3/uL (1.70-6.50) 04/26/17 04:41 Absolute Lymphs (auto) 2.22 10^3/uL (1.00-3.00) 04/26/17 04:41 Absolute Monos (auto) 0.70 10^3/uL (0.30-0.80) 04/26/17 04:41 Absolute Eos (auto) 0.36 10^3/uL (0.03-0.40) 04/26/17 04:41 Absolute Basos (auto) 0.08 10^3/uL (0.02-0.10) 04/26/17 04:41 Absolute Nucleated RBC 0.00 10^3/uL (0-0.01) 04/26/17 04:41 Immature Gran % 0.3 % (0.0-1.1) 04/26/17 04:41 Immature Gran # 0.02 10^3/uL (0.00-0.10) 04/26/17 04:41 D-Dimer < 0.27 ug/mLFEU (0.00-0.50) 04/25/17 18:45 Sodium 140 mEq/L (134-144) 04/26/17 04:41 Potassium 4.2 mEq/L (3.5-5.2) 04/26/17 04:41 Chloride 108 mEq/L (97-110) 04/26/17 04:41 Carbon Dioxide 26 mEq/l (22-31) 04/26/17 04:41 Anion Gap 6 mEq/L (8-16) L 04/26/17 04:41 BUN 14 mg/dL (7-23) 04/26/17 04:41 Creatinine 1.0 mg/dL (0.7-1.3) 04/26/17 04:41 Estimated GFR > 60 04/26/17 04:41 Glucose 89 mg/dL (70-100) 04/26/17 04:41 Calcium 9.1 mg/dL (8.5-10.4) 04/26/17 04:41 Magnesium 2.1 mg/dL (1.6-2.3) 04/26/17 04:41 Creatine Kinase 313 IU/L (0-224) H 04/26/17 14:41 CK-MB (CK-2) Fraction 2.54 ng/mL (0-3.19) 04/26/17 14:41 CK-MB (CK-2) % 0.8 % (0.0-4.0) 04/26/17 14:41 Creatine Kinase Interp NEGATIVE (NEGATIVE) 04/26/17 14:41 Troponin I < 0.012 ng/mL (0-0.034) 04/26/17 04:41 TSH 1.120 uIU/mL (0.465-4.680) 04/26/17 04:41 Urine Opiates Screen 497 ng/mL (NEGATIVE) 04/26/17 06:00 Urine Barbiturates NEGATIVE ng/mL (NEGATIVE) 04/26/17 06:00 Ur Phencyclidine Scrn NEGATIVE ng/mL (NEGATIVE) 04/26/17 06:00 Ur Amphetamines Screen NEGATIVE ng/mL (NEGATIVE) 04/26/17 06:00 U Benzodiazepines Scrn NEGATIVE ng/mL (NEGATIVE) 04/26/17 06:00 Urine Cocaine Screen > 90468 ng/mL (NEGATIVE) 04/26/17 06:00 U Marijuana (THC) Screen > 800 ng/mL (NEGATIVE) 04/26/17 06:00 Visualized and Interpreted Chest x-ray results: Yes Visualized and Interpreted EKG results: Yes EKG additional interpertation: With T-wave inversions V3 through V6 Echocardiogram: Normal LV and RV systolic function without pulmonary hypertension. No valvular heart disease. No regional wall motion abnormalities A/P Assessment: 26-year-old male with acute cocaine ingestion associated with chest pressure abnormal EKG findings at baseline now with resolution. Negative cardiac enzymes over 24 hour.. Normal echocardiogram. Recommendations are for abstinence from cocaine. P.r.n. nitroglycerin. Avoid beta-blockers. Considerations for calcium channel macy for persistence of symptoms. Patient be followed up in Cardiology Clinic on Wednesday. Plan: P.r.n. nitroglycerin. Follow-up Wednesday cardiology. Review of Systems - Review of Systems Constitutional: no symptoms reported EENTM: no symptoms reported Respiratory: no symptoms reported Cardiac: chest pain. denies: edema, irregular heart rate, lightheadedness, palpitations, syncope Gastrointestinal/Abdominal: no symptoms reported Genitourinary: no symptoms Musculoskelatal: no symptoms Skin: no symptoms Neurological: no symptoms Hematologic/Lymphatic: no symptoms reported Immunologic/allergic: no symptoms reported Past Medical History - Personal History Current Tetanus Diphtheria and Acellular Pertussis (TDAP): Yes Tetanus Vaccine Date: within 10 years - Medical/Surgical History Hx Asthma: No Hx Chronic Respiratory Disease: No Hx Cardiac Disease: No Hx Diabetes: No Hx Renal Disease: No Hx Alcoholism: No Hx Cirrhosis: No Hx HIV/AIDS: No Hx Splenectomy or Spleen Trauma: No Other PMH: pmh: PE. PSH: DENIES - Family History Significant Family History: No pertinent family hx - Social History Smoking Status: Current every day smoker (2-3 daily) Drug Use: Cocaine
--- NOTE | 2017-04-27 21:52 | GDS ---
[f rep st] DISCHARGE SUMMARY DISCHARGE DIAGNOSES: 1. Acute chest pain after cocaine use. 2. History of pulmonary emboli. 3. Nausea. 4. Cocaine use. 5. Cannabis use and opiate use. 6. Nicotine dependence. CONSULTATIONS: Sylvester Cool MD, with Cardiology services. HISTORY OF PRESENT ILLNESS: Briefly, the patient is a 26-year-old male, who has a history of a PE, who presented to the [facility] with complaints of chest pain. He had been out the previous night, and adm its to cocaine use. He describes the pain as tightening, substernal and nonradiating. What helped him most was nitroglycerin sublingual. He did have some T-wave inversions. He was seen by Cardiolo gy, and will further follow up with them this next Wednesday. HOSPITAL COURSE: 1. Chest pain. His echo shows normal LV function, no LVH. I am suspecting that he had spasms afte r cocaine use. Troponins were checked, they are negative x3. D-dimer is assuring that it is negati ve. He is getting relief from nitroglycerin sublingual. He will get a prescription for this. 2. History of PE. He had 1 chronic thrombus in the right lower lobe. This was noted in December 10. I recommend that he follow up with his PCP. 3. Nausea, improving. 4. Cocaine use. We have had multiple talks about not using cocaine. I believe this episode of adm ission and the constant chest pain will help him to stop using this. 5. Cannabis use and opiate use. Also discussed the impacts of this on his life. 6. Nicotine dependence. He is motivated to cut back. I have recommended that he abstain from this because of nicotine causing vasoconstriction, which would likely exacerbate his chest pain. PENDING LABS AND TESTS: None. CONDITION AT DISCHARGE: Stable. VITAL SIGNS: Blood pressure is 129/84, heart rate is 60, respirat ory rate is 16, O2 saturations on room air are 94%, temperature is 36.9 Celsius. MEDICATIONS AT DISCHARGE: Please see the EMR. DISCHARGE INSTRUCTIONS: 1. To stop using cocaine. 2. Recommending stopping cigarette use. 3. To follow up with Dr. Cool as scheduled. 4. If his chest pain keeps recurring even with the nitroglycerin, to return to the ER. /[id number]/MODL
== END 2017-04-27 14:57 | disposition home or self-care (01) | DRG 313 ==
LOC: CED 18:30 → INTOOBSV 20:14 → CEDHOLD 20:14 → F3N 22:12 → OBSVTOIN 04-26 13:50
PROVIDERS: ADMIT Internal Medicine; ATTEND Internal Medicine
DX: R07.2 Precordial pain (principal); F14.988 Cocaine use, unspecified with other cocaine-induced disorder; F12.90 Cannabis use, unspecified, uncomplicated; F17.210 Nicotine dependence, cigarettes, uncomplicated; R11.0 Nausea; Z86.711 Personal history of pulmonary embolism
CPT/HCPCS: 71010-PO; 80048-PO; 80307; 84484-PO; 85025-PO; 85378-PO; 96374; G0378; G0480; J1885; J2060